=== PATIENT | female | born 1975 | race African-American/Black ===

== ENCOUNTER → 2016-12-29 | Day surgery (SDC) | payer OTHER ==
[~2016-12-29] MED LIST: FERROUS GLUCON325 M1 PO; IBUPROFEN800 MG PO; VENLAFAXINE HC150 M1 PO
--- NOTE | ~2016-12-29 | OR ---
Unit #: [id number] #: [id number] Patient: ADAN GILLILAND [id number] [address] [place], [place] [address] [id number] O MR#: [id number] NAME: ADAN GILLILAND ROOM: Date of Procedure: 12/29/2016 Admission Date: 12/29/2016 Surgeon: Matthew Mcdonald M.D. : 1975 Attending Physician: Matthew Mcdonald M.D. Primary Care Physician: Gaby Robertson M.D. OPERATIVE REPORT PREOPERATIVE DIAGNOSES Change in bowel habits with increasing constipation. POSTOPERATIVE DIAGNOSES Rare sigmoid diverticulum. PROCEDURE PERFORMED Colonoscopy to cecum. ANESTHESIA IV sedation. COMPLICATIONS None. INDICATIONS FOR PROCEDURE The patient is a 41-year-old with change in bowel habits and consistent with recurrent constipation. DESCRIPTION OF PROCEDURE The patient was taken to the operative theater and placed in left lateral decubitus position. IV sedation was initiated. Digital rectal exam was normal. Colonoscope was then passed under direct vision and navigated to the cecum. The patient had excellent prep. I visualized the entire colon. I saw no evidence of neoplastic lesions. She had some very small rare diverticulum in the sigmoid colon. There was no inflammation. She tolerated the procedure well and sent to recovery room in good condition. PLAN We will increase Colace to b.i.d. basis. Dictated by... Constanza AguileraO/khadijah TD: 12/29/2016 15:33 JOB #: [id number] Unit #: [id number] #: [id number] Patient: ADAN GILLILAND OPERATIVE REPORT Page 1 of 1 X Matthew Mcdonald MD X PROCEDURE OPERATIVE NOTE
== END | disposition home or self-care (01) ==
LOC: COPS 09:34
DX: K57.30 Diverticulosis of large intestine without perforation or abscess without bleeding (principal); K59.00 Constipation, unspecified; M19.90 Unspecified osteoarthritis, unspecified site; E66.01 Morbid (severe) obesity due to excess calories; K21.9 Gastro-esophageal reflux disease without esophagitis; K62.5 Hemorrhage of anus and rectum; Z68.29 Body mass index [BMI] 29.0-29.9, adult; Z72.4 Inappropriate diet and eating habits; Z79.899 Other long term (current) drug therapy; Z98.84 Bariatric surgery status; Z98.890 Other specified postprocedural states
CPT/HCPCS: 84703; J2250